=== PATIENT | female | born 1960 | race Caucasian/White ===

== ENCOUNTER 2021-04-29 12:38 | Emergency (ER) | payer OTHER ==
[2021-04-29 12:58] VITALS: TEMP 98.4; BMI 22.4
[2021-04-29 14:23] LABS: BASO % 0.8 % (0-2.0); EOS % 0.8 % (0-4.5); HEMATOCRIT 42.1 % (32.4-45.2); HEMOGLOBIN 14.3 GM/dL (10.7-15.3); LYMPH % 27.3 % (8-40); MCH 28.9 pg (25.7-33.7); MCHC 33.9 g/dl (32.0-36.0); MEAN CELL VOLUME 85.1 fl (80-96); MEAN PLT VOLUME 8.4 fl (7.5-11.1); MONO % 6.5 % (3.8-10.2); NEUT % 64.6 % (42.8-82.8); PLATELET COUNT 275 10^3/uL (134-434); RBC 4.95 M/mm3 (3.60-5.2); RDW 13.7 % (11.6-15.6); WHITE BLOOD COUNT 7.8 K/mm3 (4.0-10.0)
[2021-04-29 14:38] LABS: INR 1.01 (0.83-1.09); PROTHROMBIN TIME (PATIENT) 12.4 SEC (9.7-13.0)
[2021-04-29 14:40] LABS: ACTIVATED PTT 31.5 SECONDS (25.2-36.5)
[2021-04-29 14:41] LABS: CHLORIDE 106 mmol/L (98-107); SODIUM 141 mmol/L (136-145)
[2021-04-29 14:43] LABS: ALBUMIN 4.4 g/dl (3.4-5.0); ANION GAP 6 MMOL/L (8-16); BLOOD UREA NITROGEN 14.4 mg/dL (7-18); CALCIUM 9.6 mg/dL (8.5-10.1); CO2 29 mmol/L (21-32); GLUCOSE,RANDOM 89 mg/dL (74-106)
[2021-04-29 14:46] LABS: CREATININE 0.7 mg/dL (0.55-1.3); SGOT/AST 13 U/L (15-37); SGPT/ALT 25 U/L (13-61)
[2021-04-29 14:48] LABS: BILIRUBIN,TOTAL 0.4 mg/dL (0.2-1); TOT PROT 7.6 g/dl (6.4-8.2)
[2021-04-29 14:49] LABS: ALK PHOS 124 U/L (45-117)
[2021-04-29] MEDS ORDERED: LACTATED RINGERS SOLUTION 1000 ML INFUS.BAG IV ONE (14:50)
[2021-04-29 18:06] VITALS: BP 154/94; PULSE 77
== END 2021-04-29 18:06 | disposition left against medical advice (07) ==
LOC: JER 12:38
DX: R04.2 Hemoptysis (principal); J47.1 Bronchiectasis with (acute) exacerbation; R91.1 Solitary pulmonary nodule
CPT/HCPCS: 36415; 71046-TC-FY; 71275-TC; 80053; 84443; 84484; 85025; 85610; 85730; 86850; 86900; 86901; 99285-25; Q9967

== ENCOUNTER 2021-05-10 05:10 | Day surgery (SDC) | payer OTHER ==
[2021-05-06 13:51] VITALS: BMI 22.0
[2021-05-10] MEDS ORDERED: LIDOCAINE HCL 1%, 10 MG/ML (20ML VIAL) ONE (11:50)
[2021-05-10] MEDS ORDERED: MIDAZOLAM HCL 2 MG/2 ML SINGLE DOSE VIAL ONE (12:04)
[2021-05-10] MEDS ORDERED: PROPOFOL 20 ML ONE ×3 (12:26)
[2021-05-10] MEDS ORDERED: SUCCINYLCHOLINE CHLORIDE 200 MG/10 ML SYRINGE ONE (12:26)
[2021-05-10] MEDS ORDERED: DEXAMETHASONE SOD PHOSPHATE 4 MG/1 ML VIAL ONE (12:49)
[2021-05-10 16:47] VITALS: BP 119/76; PULSE 77; TEMP 98.1
== END 2021-05-10 17:00 | disposition home or self-care (01) ==
LOC: JASU-SURG 05:10
PROVIDERS: ATTEND Internal Medicine
PROC: 0BDF8ZX Extraction of Right Lower Lung Lobe, Via Natural or Artificial Opening Endoscopic, Diagnostic (ICD-10-PCS; 2021-05-10)
PROC: 0BB68ZX Excision of Right Lower Lobe Bronchus, Via Natural or Artificial Opening Endoscopic, Diagnostic (ICD-10-PCS; principal; 2021-05-10 12:00)
DX: R91.1 Solitary pulmonary nodule (principal); R04.2 Hemoptysis
CPT/HCPCS: 71045-TC-FY; 87070; 87102; 87116; 87205; 87206; 87210; 88104; 88108; 88305-TC; 94760

== ENCOUNTER 2022-03-20 04:50 | Day surgery (SDC) | payer OTHER ==
[2022-03-13 16:10] VITALS: BMI 19.6
[2022-03-20] MEDS ORDERED: MIDAZOLAM HCL 2 MG/2 ML SINGLE DOSE VIAL ONE (10:24)
[2022-03-20] MEDS ORDERED: FENTANYL CITRATE/PF 50 MCG/ML VIAL ONE (10:24)
[2022-03-20] MEDS ORDERED: SODIUM CHLORIDE 500 ML IV ONE (11:00)
[2022-03-20] MEDS ORDERED: MIDAZOLAM HCL 2 MG/2 ML SINGLE DOSE VIAL IVPUSH ONE ×2 (11:05→11:15)
[2022-03-20] MEDS ORDERED: FENTANYL CITRATE/PF 50 MCG/ML VIAL IVPUSH ONE ×2 (11:05→11:15)
[2022-03-20 14:42] VITALS: BP 123/77; PULSE 67; TEMP 97.8
== END 2022-03-20 14:20 | disposition home or self-care (01) ==
LOC: JRADIR 04:50
PROVIDERS: ATTEND Internal Medicine Hematology & Oncology
PROC: 0QB23ZX Excision of Right Pelvic Bone, Percutaneous Approach, Diagnostic (ICD-10-PCS; principal; 2022-03-20)
DX: M89.9 Disorder of bone, unspecified (principal); Z85.3 Personal history of malignant neoplasm of breast; R94.8 Abnormal results of function studies of other organs and systems
CPT/HCPCS: 20225; 88305-TC; 88311-TC; 88342-TC

== ENCOUNTER 2022-09-13 09:46 | Emergency (ER) | payer OTHER ==
[2022-09-13 11:21] VITALS: BP 129/91; PULSE 99; RESP 18; TEMP 98.2; BMI 17.9
[2022-09-13 17:49] LABS: BASO % 0.9 % (0-2.0); HEMATOCRIT 35.7 % (32.4-45.2); HEMOGLOBIN 11.9 GM/dL (10.7-15.3); LYMPH % 16.8 % (8-40); MCHC 33.4 g/dl (32.0-36.0); MEAN PLT VOLUME 7.3 fl (7.5-11.1); MONO % 8.4 % (3.8-10.2); NEUT % 70.9 % (42.8-82.8); PLATELET COUNT 380 10^3/uL (134-434); RBC 4.25 M/mm3 (3.60-5.2); RDW 16.6 % (11.6-15.6); WHITE BLOOD COUNT 8.7 K/mm3 (4.0-10.0)
[2022-09-13 18:13] LABS: ALBUMIN 3.5 g/dl (3.4-5.0); CALCIUM 9.7 mg/dL (8.5-10.1)
[2022-09-13 18:16] LABS: CREATININE 0.8 mg/dL (0.55-1.3)
[2022-09-13 18:18] LABS: BILIRUBIN,TOTAL 0.5 mg/dL (0.2-1); TOT PROT 6.9 g/dl (6.4-8.2)
[2022-09-13 18:44] LABS: ERYTHROCYTE SEDIMENTATION RATE 42 mm/hr (0-30)
== END 2022-09-13 18:29 | disposition home or self-care (01) ==
LOC: JER 09:46
DX: M79.9 Soft tissue disorder, unspecified (principal)
CPT/HCPCS: 36415; 70450-TC; 80053; 85025; 85651; 86140; 99284-25

== ENCOUNTER 2023-01-08 17:27 | Day surgery (SDC) | payer OTHER ==
[2023-01-08] MEDS ORDERED: FULVESTRANT 250 MG/5 ML SYRINGE IM ONE (18:00)
[2023-01-08 18:12] LABS: BASO % 0.8 % (0-2.0); EOS % 5.7 % (0-4.5); HEMOGLOBIN 9.7 GM/dL (10.7-15.3); LYMPH % 22.2 % (8-40); MCH 23.5 pg (25.7-33.7); MCHC 31.3 g/dl (32.0-36.0); MEAN CELL VOLUME 74.9 fl (80-96); MEAN PLT VOLUME 7.3 fl (7.5-11.1); MONO % 7.5 % (3.8-10.2); NEUT % 63.8 % (42.8-82.8); PLATELET COUNT 408 10^3/uL (134-434); RBC 4.14 M/mm3 (3.60-5.2); RDW 22.3 % (11.6-15.6); WHITE BLOOD COUNT 5.9 K/mm3 (4.0-10.0)
[2023-01-08 18:27] VITALS: BP 126/81; PULSE 75; RESP 18; TEMP 98.1
[2023-01-08 18:32] LABS: ALBUMIN 3.3 g/dl (3.4-5.0); CALCIUM 8.6 mg/dL (8.5-10.1)
[2023-01-08 18:34] LABS: BLOOD UREA NITROGEN 16.2 mg/dL (7-18); MAGNESIUM 2.4 mg/dL (1.8-2.4)
[2023-01-08 18:35] LABS: ANISOCYTOSIS 3+; BILIRUBIN,DIRECT 0.1 mg/dL (0.0-0.2); CREATININE 0.6 mg/dL (0.55-1.3); MACROCYTOSIS 0; OVALOCYTE 1+
[2023-01-08 18:37] LABS: BILIRUBIN,TOTAL 0.2 mg/dL (0.2-1); TOT PROT 6.5 g/dl (6.4-8.2)
== END 2023-01-08 18:42 | disposition home or self-care (01) ==
LOC: JONCCHEMO 17:27
PROVIDERS: ATTEND Internal Medicine Hematology & Oncology
DX: Z51.11 Encounter for antineoplastic chemotherapy (principal); C50.912 Malignant neoplasm of unspecified site of left female breast; Z17.0 Estrogen receptor positive status [ER+]
CPT/HCPCS: 36415; 80048; 80076; 83735; 85025; 96402; J9395

== ENCOUNTER 2023-01-22 11:51 | Day surgery (SDC) | payer OTHER ==
[~2023-01-22 11:51] MED LIST: FULVESTRANT 250 MG/5 ML SYRINGE IM ONE
[2023-01-22 18:30] VITALS: BP 130/50; PULSE 86; RESP 18; TEMP 97.8
== END 2023-01-22 12:30 | disposition home or self-care (01) ==
LOC: JONCCHEMO 11:51
PROVIDERS: ATTEND Internal Medicine Hematology & Oncology
DX: Z51.11 Encounter for antineoplastic chemotherapy (principal); C50.912 Malignant neoplasm of unspecified site of left female breast
CPT/HCPCS: 96402; J9395

== ENCOUNTER 2023-02-05 11:33 | Day surgery (SDC) | payer OTHER ==
[2023-02-05 12:32] LABS: BASO % 0.9 % (0-2.0); EOS % 1.8 % (0-4.5); HEMATOCRIT 34.5 % (32.4-45.2); HEMOGLOBIN 11.2 GM/dL (10.7-15.3); MCH 25.6 pg (25.7-33.7); MCHC 32.4 g/dl (32.0-36.0); MEAN CELL VOLUME 79.1 fl (80-96); MEAN PLT VOLUME 7.6 fl (7.5-11.1); MONO % 10.1 % (3.8-10.2); NEUT % 56.2 % (42.8-82.8); PLATELET COUNT 274 10^3/uL (134-434); RBC 4.37 M/mm3 (3.60-5.2); RDW 22.8 % (11.6-15.6); WHITE BLOOD COUNT 3.5 K/mm3 (4.0-10.0)
[2023-02-05 12:54] LABS: ALBUMIN 3.5 g/dl (3.4-5.0); BLOOD UREA NITROGEN 16.6 mg/dL (7-18)
[2023-02-05 12:55] LABS: MAGNESIUM 2.5 mg/dL (1.8-2.4)
[2023-02-05 12:56] LABS: BILIRUBIN,DIRECT 0.1 mg/dL (0.0-0.2)
[2023-02-05 12:57] LABS: CREATININE 0.6 mg/dL (0.55-1.3)
[2023-02-05 12:58] LABS: BILIRUBIN,TOTAL 0.3 mg/dL (0.2-1); TOT PROT 6.5 g/dl (6.4-8.2)
[2023-02-05 13:10] LABS: ANISOCYTOSIS 1+; MACROCYTOSIS 1+
[2023-02-05 16:28] VITALS: BP 137/85; PULSE 70; RESP 19; TEMP 97.3
== END 2023-02-05 12:30 | disposition home or self-care (01) ==
LOC: JONCCHEMO 11:33
PROVIDERS: ATTEND Internal Medicine Hematology & Oncology
DX: Z51.11 Encounter for antineoplastic chemotherapy (principal); C50.912 Malignant neoplasm of unspecified site of left female breast
CPT/HCPCS: 36415; 80048; 80076; 82378; 83735; 85025; 86300; 96402; J9395

== ENCOUNTER 2023-03-12 11:46 | Day surgery (SDC) | payer OTHER ==
[2023-03-12 12:35] LABS: BASO % 0.3 % (0-2.0); EOS % 1.3 % (0-4.5); HEMATOCRIT 36.7 % (32.4-45.2); HEMOGLOBIN 12.2 GM/dL (10.7-15.3); LYMPH % 27.6 % (8-40); MCH 26.5 pg (25.7-33.7); MCHC 33.2 g/dl (32.0-36.0); MEAN CELL VOLUME 79.8 fl (80-96); NEUT % 61.8 % (42.8-82.8); PLATELET COUNT 267 10^3/uL (134-434); RDW 16.9 % (11.6-15.6)
[2023-03-12 12:47] LABS: POTASSIUM 4.2 mmol/L (3.5-5.1)
[2023-03-12 12:49] LABS: CALCIUM 9.5 mg/dL (8.5-10.1)
[2023-03-12 12:50] LABS: BLOOD UREA NITROGEN 13.1 mg/dL (7-18); MAGNESIUM 2.5 mg/dL (1.8-2.4)
[2023-03-12 12:52] LABS: BILIRUBIN,DIRECT 0.1 mg/dL (0.0-0.2)
[2023-03-12 12:53] LABS: CREATININE 0.7 mg/dL (0.55-1.3)
[2023-03-12 12:54] LABS: BILIRUBIN,TOTAL 0.2 mg/dL (0.2-1); TOT PROT 7.2 g/dl (6.4-8.2)
[2023-03-12 16:51] VITALS: BP 139/89; PULSE 73; RESP 18; TEMP 98.2
== END 2023-03-12 12:45 | disposition home or self-care (01) ==
LOC: JONCCHEMO 11:46 → J7W 11:47 → JONCCHEMO 12:45
PROVIDERS: ATTEND Internal Medicine Hematology & Oncology
DX: Z51.11 Encounter for antineoplastic chemotherapy (principal); C50.912 Malignant neoplasm of unspecified site of left female breast
CPT/HCPCS: 36415; 80048; 80076; 82378; 83735; 85025; 86300; 96402; J9395

== ENCOUNTER 2023-04-09 11:47 | Day surgery (SDC) | payer OTHER ==
[2023-04-09 16:13] VITALS: BP 113/76; PULSE 94; RESP 18; TEMP 98.2
== END 2023-04-09 12:30 | disposition home or self-care (01) ==
LOC: JONCCHEMO 11:47 → J7W 11:49 → JONCCHEMO 12:30
PROVIDERS: ATTEND Internal Medicine Hematology & Oncology
DX: Z51.11 Encounter for antineoplastic chemotherapy (principal); C50.919 Malignant neoplasm of unspecified site of unspecified female breast; C78.01 Secondary malignant neoplasm of right lung
CPT/HCPCS: 96402; J9395

== ENCOUNTER 2023-05-10 11:29 | Day surgery (SDC) | payer OTHER ==
[2023-05-10 16:50] VITALS: BP 121/72; PULSE 68; RESP 18; TEMP 98.2
== END 2023-05-10 12:00 | disposition home or self-care (01) ==
LOC: JONCCHEMO 11:29 → J7W 11:30 → JONCCHEMO 12:00
PROVIDERS: ATTEND Internal Medicine Hematology & Oncology
DX: Z51.11 Encounter for antineoplastic chemotherapy (principal); C50.912 Malignant neoplasm of unspecified site of left female breast
CPT/HCPCS: 96402; J9395

== ENCOUNTER 2023-06-05 11:05 | Day surgery (SDC) | payer OTHER ==
[2023-06-05 15:16] VITALS: BP 126/70; PULSE 71; RESP 18; TEMP 98.3
== END 2023-06-05 11:30 | disposition home or self-care (01) ==
LOC: JONCCHEMO 11:05 → J7W 11:07 → JONCCHEMO 11:30
PROVIDERS: ATTEND Internal Medicine Hematology & Oncology
DX: Z51.11 Encounter for antineoplastic chemotherapy (principal); C50.912 Malignant neoplasm of unspecified site of left female breast
CPT/HCPCS: 96402; J9395

== ENCOUNTER 2023-07-02 10:13 | Day surgery (SDC) | payer OTHER ==
[2023-07-02 11:29] LABS: BASO % 0.4 % (0-2.0); HEMOGLOBIN 12.4 GM/dL (10.7-15.3); LYMPH % 21.4 % (8-40); MCHC 33.6 g/dl (32.0-36.0); MEAN CELL VOLUME 83.5 fl (80-96); MEAN PLT VOLUME 8.6 fl (7.5-11.1); MONO % 7.5 % (3.8-10.2); NEUT % 67.7 % (42.8-82.8); PLATELET COUNT 259 10^3/uL (134-434); RBC 4.44 M/mm3 (3.60-5.2); RDW 14.7 % (11.6-15.6); WHITE BLOOD COUNT 4.6 K/mm3 (4.0-10.0)
[2023-07-02 11:54] VITALS: BP 115/81; PULSE 64; RESP 18; TEMP 97.8
[2023-07-02 11:57] LABS: POTASSIUM 4.4 mmol/L (3.5-5.1)
[2023-07-02 12:02] LABS: BLOOD UREA NITROGEN 11.9 mg/dL (7-18); CALCIUM 9.2 mg/dL (8.5-10.1); MAGNESIUM 2.2 mg/dL (1.8-2.4)
[2023-07-02 12:05] LABS: CREATININE 0.7 mg/dL (0.55-1.3)
[2023-07-02 12:07] LABS: BILIRUBIN,TOTAL 0.4 mg/dL (0.2-1)
== END 2023-07-02 11:00 | disposition home or self-care (01) ==
LOC: JONCCHEMO 10:13 → J7W 10:15 → JONCCHEMO 11:00
PROVIDERS: ATTEND Internal Medicine Hematology & Oncology
DX: Z51.11 Encounter for antineoplastic chemotherapy (principal); C50.912 Malignant neoplasm of unspecified site of left female breast
CPT/HCPCS: 36415; 80053; 82306; 82378; 83735; 85025; 86300; 96402; J9395

== ENCOUNTER 2023-08-29 11:04 | Day surgery (SDC) | payer OTHER ==
[2023-08-29 16:19] VITALS: BP 120/68; PULSE 69; RESP 18; TEMP 98
== END 2023-08-29 12:00 | disposition home or self-care (01) ==
LOC: JONCCHEMO 11:04 → J7W 11:07 → JONCCHEMO 12:00
PROVIDERS: ATTEND Internal Medicine Hematology & Oncology
DX: Z51.11 Encounter for antineoplastic chemotherapy (principal); C50.912 Malignant neoplasm of unspecified site of left female breast; Z17.0 Estrogen receptor positive status [ER+]; C78.01 Secondary malignant neoplasm of right lung; C79.51 Secondary malignant neoplasm of bone
CPT/HCPCS: 96402; J9395

== ENCOUNTER 2023-10-01 12:05 | Day surgery (SDC) | payer OTHER ==
[~2023-10-01 12:05] MED LIST changes: +LIDOCAINE HCL 1%, 10 MG/ML (20ML VIAL) ID ONE
[2023-10-01 16:04] VITALS: BP 128/68; PULSE 68; RESP 18; TEMP 97.7
== END 2023-10-01 12:45 | disposition home or self-care (01) ==
LOC: JONCCHEMO 12:05 → J7W 12:07 → JONCCHEMO 12:45
PROVIDERS: ATTEND Internal Medicine Hematology & Oncology
DX: Z51.11 Encounter for antineoplastic chemotherapy (principal); C50.912 Malignant neoplasm of unspecified site of left female breast; C78.01 Secondary malignant neoplasm of right lung; C79.51 Secondary malignant neoplasm of bone; Z17.0 Estrogen receptor positive status [ER+]
CPT/HCPCS: 96402; J9395

== ENCOUNTER 2023-10-24 12:42 | Day surgery (SDC) | payer OTHER ==
[2023-10-24 16:35] VITALS: BP 116/71; PULSE 74; RESP 18; TEMP 97.8
== END 2023-10-24 13:05 | disposition home or self-care (01) ==
LOC: JONCCHEMO 12:42 → J7W 12:45 → JONCCHEMO 13:05
PROVIDERS: ATTEND Internal Medicine Hematology & Oncology
DX: C50.912 Malignant neoplasm of unspecified site of left female breast (principal); C78.01 Secondary malignant neoplasm of right lung
CPT/HCPCS: 96402; J9395

== ENCOUNTER 2023-11-21 12:34 | Day surgery (SDC) | payer OTHER ==
[2023-11-21 12:58] VITALS: BP 122/76; PULSE 84; RESP 18; TEMP 98.6
== END 2023-11-21 13:03 | disposition home or self-care (01) ==
LOC: JONCCHEMO 12:34 → J7W 12:35 → JONCCHEMO 13:03
PROVIDERS: ATTEND Internal Medicine Hematology & Oncology
DX: Z51.11 Encounter for antineoplastic chemotherapy (principal); C50.912 Malignant neoplasm of unspecified site of left female breast; C78.01 Secondary malignant neoplasm of right lung
CPT/HCPCS: 96402; J9395

== ENCOUNTER 2023-12-19 11:13 | Day surgery (SDC) | payer OTHER ==
[2023-12-19 12:23] LABS: BASO % 0.5 % (0-2.0); EOS % 1.8 % (0-4.5); HEMATOCRIT 37.3 % (32.4-45.2); HEMOGLOBIN 12.5 GM/dL (10.7-15.3); LYMPH % 30.4 % (8-40); MCH 28.2 pg (25.7-33.7); MCHC 33.6 g/dl (32.0-36.0); MEAN CELL VOLUME 84.1 fl (80-96); MEAN PLT VOLUME 8.9 fl (7.5-11.1); MONO % 6.1 % (3.8-10.2); NEUT % 61.2 % (42.8-82.8); PLATELET COUNT 211 10^3/uL (134-434); RBC 4.43 M/mm3 (3.60-5.2); RDW 14.6 % (11.6-15.6); WHITE BLOOD COUNT 4.3 K/mm3 (4.0-10.0)
[2023-12-19] MEDS: FULVESTRANT 250 MG/5 ML SYRINGE IM ONE (12:44)
[2023-12-19 12:47] LABS: POTASSIUM 3.8 mmol/L (3.5-5.1)
[2023-12-19 12:48] LABS: CALCIUM 9.6 mg/dL (8.5-10.1)
[2023-12-19 12:49] LABS: ALBUMIN 3.9 g/dl (3.4-5.0); MAGNESIUM 2.1 mg/dL (1.8-2.4)
[2023-12-19 12:52] LABS: CREATININE 0.9 mg/dL (0.55-1.3)
[2023-12-19 12:54] LABS: BILIRUBIN,TOTAL 0.5 mg/dL (0.2-1); TOT PROT 7.1 g/dl (6.4-8.2)
[2023-12-19 17:33] VITALS: BP 127/59; PULSE 75; RESP 18; TEMP 97.7
== END 2023-12-19 13:00 | disposition home or self-care (01) ==
LOC: JONCCHEMO 11:13 → J7W 11:17 → JONCCHEMO 13:00
PROVIDERS: ATTEND Internal Medicine Hematology & Oncology
DX: Z51.11 Encounter for antineoplastic chemotherapy (principal); C50.912 Malignant neoplasm of unspecified site of left female breast; C78.01 Secondary malignant neoplasm of right lung
CPT/HCPCS: 36415; 80053; 82306; 82378; 83735; 85025; 86300; 96402; J9395

== ENCOUNTER 2024-01-16 11:15 | Day surgery (SDC) | payer OTHER ==
[2024-01-16] MEDS: FULVESTRANT 250 MG/5 ML SYRINGE IM ONE (11:27)
[2024-01-16 11:48] VITALS: BP 124/73; PULSE 78; RESP 18; TEMP 98.7
== END 2024-01-16 12:00 | disposition home or self-care (01) ==
LOC: JONCCHEMO 11:15 → J7W 11:16 → JONCCHEMO 12:00
PROVIDERS: ATTEND Internal Medicine Hematology & Oncology
DX: Z51.11 Encounter for antineoplastic chemotherapy (principal); C50.912 Malignant neoplasm of unspecified site of left female breast; C78.01 Secondary malignant neoplasm of right lung
CPT/HCPCS: 96402; J9395

== ENCOUNTER 2024-02-20 11:34 | Day surgery (SDC) | payer OTHER ==
[2024-02-20] MEDS: FULVESTRANT 250 MG/5 ML SYRINGE IM ONE (12:04)
[2024-02-20 16:29] VITALS: BP 147/89; PULSE 76; RESP 18; TEMP 97.1
== END 2024-02-20 12:15 | disposition home or self-care (01) ==
LOC: JONCCHEMO 11:34 → J7W 11:36 → JONCCHEMO 12:15
PROVIDERS: ATTEND Internal Medicine Hematology & Oncology
DX: Z51.11 Encounter for antineoplastic chemotherapy (principal); C50.912 Malignant neoplasm of unspecified site of left female breast; C78.01 Secondary malignant neoplasm of right lung
CPT/HCPCS: 96402; J9395

== ENCOUNTER 2024-03-19 11:46 | Day surgery (SDC) | payer OTHER ==
[2024-03-19] MEDS: FULVESTRANT 250 MG/5 ML SYRINGE IM ONE (12:12)
[2024-03-19 14:45] VITALS: BP 128/69; PULSE 81; RESP 18; TEMP 97.8
== END 2024-03-19 12:45 | disposition home or self-care (01) ==
LOC: JONCCHEMO 11:46 → J7W 11:47 → JONCCHEMO 12:45
PROVIDERS: ATTEND Internal Medicine Hematology & Oncology
DX: Z51.11 Encounter for antineoplastic chemotherapy (principal); C50.912 Malignant neoplasm of unspecified site of left female breast; C78.01 Secondary malignant neoplasm of right lung
CPT/HCPCS: 96402; J9395

== ENCOUNTER 2024-04-16 11:59 | Day surgery (SDC) | payer OTHER ==
[2024-04-16] MEDS: FULVESTRANT 250 MG/5 ML SYRINGE IM ONE (12:14)
[2024-04-16 15:32] VITALS: BP 134/76; PULSE 80; RESP 20; TEMP 98.2
== END 2024-04-16 12:30 | disposition home or self-care (01) ==
LOC: JONCCHEMO 11:59
PROVIDERS: ATTEND Internal Medicine Hematology & Oncology
DX: Z51.11 Encounter for antineoplastic chemotherapy (principal); C50.912 Malignant neoplasm of unspecified site of left female breast; C78.01 Secondary malignant neoplasm of right lung
CPT/HCPCS: 96402; J9395

== ENCOUNTER 2024-05-27 12:01 | Day surgery (SDC) | payer OTHER ==
[2024-05-27] MEDS: FULVESTRANT 250 MG/5 ML SYRINGE IM ONE (12:13)
[2024-05-27 13:21] VITALS: BP 126/81; PULSE 78; RESP 18; TEMP 98.3
== END 2024-05-27 12:45 | disposition home or self-care (01) ==
LOC: JONCCHEMO 12:01 → J7W 12:36 → JONCCHEMO 12:45
PROVIDERS: ATTEND Internal Medicine Hematology & Oncology
DX: Z51.11 Encounter for antineoplastic chemotherapy (principal); C50.912 Malignant neoplasm of unspecified site of left female breast; C78.01 Secondary malignant neoplasm of right lung
CPT/HCPCS: 96401; 96402; J9395

== ENCOUNTER 2024-06-26 11:42 | Day surgery (SDC) | payer OTHER ==
[2024-06-26] MEDS: FULVESTRANT 250 MG/5 ML SYRINGE IM ONE (11:58)
[2024-06-26 17:06] VITALS: BP 134/64; PULSE 61; RESP 20; TEMP 97.5
== END 2024-06-26 12:30 | disposition home or self-care (01) ==
LOC: JONCCHEMO 11:42 → J7W 11:44 → JONCCHEMO 12:30
PROVIDERS: ATTEND Internal Medicine Hematology & Oncology
DX: Z51.11 Encounter for antineoplastic chemotherapy (principal); C50.912 Malignant neoplasm of unspecified site of left female breast; C79.51 Secondary malignant neoplasm of bone; Z17.0 Estrogen receptor positive status [ER+]
CPT/HCPCS: 96402; J9395

== ENCOUNTER 2024-07-24 13:00 | Day surgery (SDC) | payer OTHER ==
[2024-07-24] MEDS: FULVESTRANT 250 MG/5 ML SYRINGE IM ONE (13:06)
[2024-07-24 19:00] VITALS: BP 117/64; PULSE 82; RESP 20; TEMP 97.6
== END 2024-07-24 13:30 | disposition home or self-care (01) ==
LOC: JONCCHEMO 13:00 → J7W 13:01 → JONCCHEMO 13:30
PROVIDERS: ATTEND Internal Medicine Hematology & Oncology
DX: Z51.11 Encounter for antineoplastic chemotherapy (principal); C50.912 Malignant neoplasm of unspecified site of left female breast; C79.51 Secondary malignant neoplasm of bone; Z17.0 Estrogen receptor positive status [ER+]
CPT/HCPCS: 96402; J9395

== ENCOUNTER 2024-08-20 12:11 | Day surgery (SDC) | payer OTHER ==
[2024-08-20] MEDS: FULVESTRANT 250 MG/5 ML SYRINGE IM ONE (12:34)
[2024-08-20 18:39] VITALS: BP 101/68; PULSE 72; RESP 20; TEMP 98.6
== END 2024-08-20 12:45 | disposition home or self-care (01) ==
LOC: JONCCHEMO 12:11 → J7W 12:12 → JONCCHEMO 12:45
PROVIDERS: ATTEND Internal Medicine Hematology & Oncology
DX: Z51.11 Encounter for antineoplastic chemotherapy (principal); C50.912 Malignant neoplasm of unspecified site of left female breast; Z17.0 Estrogen receptor positive status [ER+]; C78.01 Secondary malignant neoplasm of right lung
CPT/HCPCS: 96402; J9395

== ENCOUNTER 2024-09-23 12:43 | Day surgery (SDC) | payer OTHER ==
[2024-09-23] MEDS: FULVESTRANT 250 MG/5 ML SYRINGE IM ONE (13:04)
[2024-09-23 15:25] VITALS: BP 127/67; PULSE 79; RESP 18; TEMP 98.3
== END 2024-09-23 13:30 | disposition home or self-care (01) ==
LOC: J7W 12:43 → JONCCHEMO 12:43
PROVIDERS: ATTEND Internal Medicine Hematology & Oncology
DX: Z51.11 Encounter for antineoplastic chemotherapy (principal); C50.912 Malignant neoplasm of unspecified site of left female breast; C78.00 Secondary malignant neoplasm of unspecified lung
CPT/HCPCS: 96402; J9395

== ENCOUNTER 2024-10-21 12:17 | Day surgery (SDC) | payer OTHER ==
[2024-10-21] MEDS: FULVESTRANT 250 MG/5 ML SYRINGE IM ONE (12:41)
[2024-10-21 18:13] VITALS: BP 109/64; PULSE 74; RESP 20; TEMP 98
== END 2024-10-21 12:55 | disposition home or self-care (01) ==
LOC: JONCCHEMO 12:17 → J7W 12:18 → JONCCHEMO 12:55
PROVIDERS: ATTEND Internal Medicine Hematology & Oncology
DX: Z51.11 Encounter for antineoplastic chemotherapy (principal); C50.912 Malignant neoplasm of unspecified site of left female breast; C78.01 Secondary malignant neoplasm of right lung
CPT/HCPCS: 96402; J9395

== ENCOUNTER 2024-11-18 13:15 | Day surgery (SDC) | payer OTHER ==
[2024-11-18] MEDS: FULVESTRANT 250 MG/5 ML SYRINGE IM ONE (13:25)
[2024-11-18 17:31] VITALS: BP 113/72; PULSE 87; RESP 20; TEMP 97.7
== END 2024-11-18 13:45 | disposition home or self-care (01) ==
LOC: JONCCHEMO 13:15 → J7W 13:15 → JONCCHEMO 13:45
PROVIDERS: ATTEND Internal Medicine Hematology & Oncology
DX: Z51.11 Encounter for antineoplastic chemotherapy (principal); C50.912 Malignant neoplasm of unspecified site of left female breast; C78.01 Secondary malignant neoplasm of right lung; Z17.0 Estrogen receptor positive status [ER+]
CPT/HCPCS: 96402; J9395